=== PATIENT | female | born 1995 | race Two or more races ===

== ENCOUNTER 2025-03-02 09:38 | Emergency (ER) | payer OTHER ==
[~2025-03-02] VITALS: Ht 157.5 cm; Wt 65.3 kg
[2025-03-02] MEDS ORDERED: ZATEAN-PN DHA1 EACH (09:57)
[2025-03-02] MEDS ORDERED: ZOFRAN8 MG (09:57)
[2025-03-02] MEDS ORDERED: ONDANSETRON HCL 2 MG/ML VIAL ONE (10:39)
[2025-03-02] MEDS ORDERED: ONDANSETRON HCL 2 MG/ML VIAL IV ONE (10:45)
[2025-03-02 12:34] LABS: BASO % 0.2 % (0.1-1.2); EOS # 0.05 (0.04-0.54); EOS % 0.8 % (0.7-7.0); LYMPH # 1.52 (1.18-3.74); LYMPH % 23.5 % (19.3-53.1); MEAN PLATELET VOLUME 9.80 fl (9.4-12.4); MONO # 0.68 (0.24-0.82); MONO % 10.5 % (4.7-12.5); NEUT # 4.20 (1.56-6.13); NEUT % 64.7 % (34.0-71.1); RED CELL DISTRIBUTION WIDTH 13.2 % (11.6-14.4)
[2025-03-02 12:56] LABS: URINE APPEARANCE Clear; URINE BILIRRUBIN Negative (NEGATIVE); URINE BLOOD Negative; URINE COLOR Yellow; URINE GLUCOSE Negative (NEGATIVE); URINE KETONE 15 (NEGATIVE); URINE LEUKOCYTE Trace; URINE NITRATE Negative; URINE PROTEIN Negative (NEGATIVE); URINE UROBILINOGEN 0.2 E.U./dl
[2025-03-02 12:57] LABS: URINE BACTERIA 454.7 uL (0.0-1933); URINE EPITHELIAL CELLS 21.3 uL (0.0-38.8); URINE RBC 26.5 uL (0.0-20.8); URINE WBC 9.8 uL (0.0-23.2)
[2025-03-02 13:21] LABS: URINE CAST 0.29 uL (0.0-1.40)
[2025-03-02 13:45] LABS: BUN CREA RATIO 16.0 (7.0-25.0); CREATININE SERUM 0.55 mg/dL (0.55-1.02); GFR 130.68; GLUCOSE FASTING 76.0 mg/dL (65-100); OSMOLALITY SERUM 277.0 MOSM/KG (275-295)
[2025-03-02 14:02] LABS: HCG QUANTITATIVE 101678.0 mUI/mL (1-3)
== END 2025-03-02 15:16 | disposition home or self-care (01) ==
LOC: ER 09:38
PROVIDERS: Emergency Medicine
DX: O24.111 Pre-existing type 2 diabetes mellitus, in pregnancy, first trimester (principal); O20.9 Hemorrhage in early pregnancy, unspecified; Z3A.08 8 weeks gestation of pregnancy

== ENCOUNTER 2025-04-02 07:58 | Emergency (ER) | payer OTHER ==
[~2025-04-02] VITALS: Ht 157.5 cm; Wt 65.8 kg
[~2025-04-02 07:58] MED LIST: ZATEAN-PN DHA1 EACH; ZOFRAN8 MG
[2025-04-02 09:39] LABS: BASO % 0.1 % (0.1-1.2); EOS # 0.03 (0.04-0.54); EOS % 0.4 % (0.7-7.0); LYMPH # 1.53 (1.18-3.74); LYMPH % 18.4 % (19.3-53.1); MEAN PLATELET VOLUME 10.00 fl (9.4-12.4); MONO # 0.83 (0.24-0.82); MONO % 10.0 % (4.7-12.5); NEUT # 5.89 (1.56-6.13); NEUT % 70.9 % (34.0-71.1); RED CELL DISTRIBUTION WIDTH 13.5 % (11.6-14.4)
[2025-04-02 09:46] LABS: URINE APPEARANCE Clear; URINE BILIRRUBIN Negative (NEGATIVE); URINE BLOOD Moderate; URINE COLOR Yellow; URINE GLUCOSE Negative (NEGATIVE); URINE KETONE Negative (NEGATIVE); URINE LEUKOCYTE Negative; URINE NITRATE Negative; URINE PROTEIN Negative (NEGATIVE); URINE UROBILINOGEN 0.2 E.U./dl
[2025-04-02 09:47] LABS: URINE BACTERIA 464.2 uL (0.0-1933); URINE EPITHELIAL CELLS 9.9 uL (0.0-38.8); URINE RBC 2.3 uL (0.0-20.8); URINE WBC 6.9 uL (0.0-23.2)
[2025-04-02 10:01] LABS: URINE CAST 0.00 uL (0.0-1.40)
== END 2025-04-02 13:29 | disposition home or self-care (01) ==
LOC: ER 07:58
PROVIDERS: Emergency Medicine
DX: O20.8 Other hemorrhage in early pregnancy (principal); Z3A.13 13 weeks gestation of pregnancy